=== PATIENT | female | born 2000 | race Hispanic/Latino ===

== ENCOUNTER → 2024-08-10 10:45 | Outpatient (REF) | payer OTHER, SELFPAY | LOC: PNTC 10:45 | PROVIDERS: ATTENDING PHYSICIAN Nurse Practitioner Family | DX: O36.80X0 Pregnancy with inconclusive fetal viability, not applicable or unspecified (principal) | CPT/HCPCS: 76801; 76813 ==

== ENCOUNTER → 2024-09-06 09:43 | Outpatient (REF) | payer OTHER, SELFPAY | LOC: PNTC 09:43 | PROVIDERS: ATTENDING PHYSICIAN Obstetrics & Gynecology | DX: Z87.51 Personal history of pre-term labor (principal) | CPT/HCPCS: 76815 ==

== ENCOUNTER → 2024-09-21 10:10 | Outpatient (REF) | payer OTHER, SELFPAY | LOC: PNTC 10:10 | PROVIDERS: ATTENDING PHYSICIAN Obstetrics & Gynecology | DX: O60.10X0 Preterm labor with preterm delivery, unspecified trimester, not applicable or unspecified (principal) | CPT/HCPCS: 76805; 76817 ==

== ENCOUNTER → 2024-10-04 10:12 | Outpatient (REF) | payer OTHER, SELFPAY | LOC: PNTC 10:12 | PROVIDERS: ATTENDING PHYSICIAN Obstetrics & Gynecology | DX: Z87.51 Personal history of pre-term labor (principal) | CPT/HCPCS: 76801; 76817 ==

== ENCOUNTER → 2024-10-18 10:15 | Outpatient (REF) | payer OTHER, SELFPAY | LOC: PNTC 10:15 | PROVIDERS: ATTENDING PHYSICIAN Obstetrics & Gynecology | DX: O60.10X0 Preterm labor with preterm delivery, unspecified trimester, not applicable or unspecified (principal) | CPT/HCPCS: 76816; 76817 ==

== ENCOUNTER → 2024-11-04 10:50 | Outpatient (REF) | payer OTHER, SELFPAY | LOC: PNTC 10:50 | PROVIDERS: ATTENDING PHYSICIAN Obstetrics & Gynecology | DX: O09.219 Supervision of pregnancy with history of pre-term labor, unspecified trimester (principal) | CPT/HCPCS: 76815; 76817 ==

== ENCOUNTER → 2025-01-05 10:56 | Outpatient (REF) | payer OTHER, SELFPAY | LOC: PNTC 10:56 | PROVIDERS: ATTENDING PHYSICIAN Obstetrics & Gynecology | DX: Z87.51 Personal history of pre-term labor (principal) | CPT/HCPCS: 76816 ==

== ENCOUNTER 2025-03-05 08:23 | Inpatient (IN) | payer OTHER, SELFPAY ==
[2025-03-05 08:52] VITALS: BP 133/73; BMI 32.2
[2025-03-05] MEDS: LR 1000 IV (09:21)
[2025-03-05 09:32] LABS: % Basophils 0.4 % (0-2); % Eosinophils 0.4 % (0-6); % Immature Granulocytes 0.5 % (0-0.5); % Lymphocytes 23.6 % (20.5-51.1); % Neutrophils 68.1 % (42.2-75.2); Absolute Lymphocytes 1.8 10^3/uL (1.2-3.4); Absolute Monocytes 0.5 10^3/uL (0.1-0.6); Absolute Neutrophils 5.2 10^3/uL (1.4-6.5); Hematocrit 37.7 % (37.0-47.0); Hemoglobin 12.9 g/dL (12.0-16.0); Mean Corp Hgb Conc. 34.2 g/dL (33.0-37.0); Mean Corpuscular Hgb 26.9 pg (27.0-31.0); Mean Corpuscular Volume 78.5 fL (81.0-99.0); Mean Platelet Volume 12.9 fL (7.4-10.4); Nucleated Red Blood Cells % 0 %; Platelet Count 172 10^3/uL (130-400); White Blood Cell Count 7.6 10^3/uL (4.8-10.8)
[2025-03-05] MEDS: PITOCIN 30 UNITS/NSS 500 ML IV (11:07)
[2025-03-06 05:21] LABS: Hematocrit 33.7 % (37.0-47.0); Hemoglobin 11.3 g/dL (12.0-16.0)
[2025-03-06] MEDS: MOTRIN 600 MG PO ×3 (08:02→22:42)
[2025-03-08 13:34] LABS: Syphilis/T. pallidum Ab Reflex Negative (Negative)
== END 2025-03-07 12:04 | disposition home or self-care (01) | DRG 807 ==
LOC: LDRP 08:23
PROVIDERS: ADMITTING PHYSICIAN Obstetrics & Gynecology; ATTENDING PHYSICIAN Advanced Practice Midwife; FAMILY PHYSICIAN Family Medicine Sports Medicine
PROC: 0HQ9XZZ Repair Perineum Skin, External Approach (ICD-10-PCS; 2025-03-05)
PROC: 6A550ZT Pheresis of Cord Blood Stem Cells, Single (ICD-10-PCS; 2025-03-05)
PROC: 10E0XZZ Delivery of Products of Conception, External Approach (ICD-10-PCS; 2025-03-05)
PROC: 10907ZC Drainage of Amniotic Fluid, Therapeutic from Products of Conception, Via Natural or Artificial Opening (ICD-10-PCS; 2025-03-05)
DX: O48.0 Post-term pregnancy (principal); Z37.0 Single live birth; Z3A.40 40 weeks gestation of pregnancy; O70.0 First degree perineal laceration during delivery
CPT/HCPCS: 36415; 85014; 85018; 85025; 86780; 86850; 86900; 86901